=== PATIENT | male | born 1945 | race African-American/Black ===

== ENCOUNTER 2017-04-28 09:16 | Emergency (ER) | payer OTHER ==
[~2017-04-28] VITALS: Ht 185.4 cm; Wt 92.5 kg
--- NOTE | ~2017-04-28 | EKG ---
[place] [address] [facility] [place] [address] ELECTROCARDIOGRAM REPORT Name: EMILIE MATHIS Room #: DEP ROSY Pete#: [id number] Admission: 04/28/17 Attend Phys: Discharge: 04/28/17 Date of : 49 Report #: [id number] THIS REPORT FOR: //name// [facility] ED Test Date: 2017-04-28 Test Time: 09:50:01 Pat Name: EMILIE MATHIS Department: Room: Gender: M [employer] Supervisor: HTHOMPSON : 1945 Requested By: Rishabh Courtney Order Number: [id number] MD: Sp Horvath Measurements Intervals [place] Rate: 63 P: 12 PA: 195 QRS: 14 QRSD: 104 T: 11 QT: 413 QTc: 423 Interpretive Statements Sinus rhythm Probable left ventricular hypertrophy No previous ECG available for comparison Electronically Signed On 04-30-2017 13:34:41 CDT by Sp Horvath [email or web address] <ELECTRONICALLY SIGNED> By: Sp Horvath MD, [facility] 04/30/17 1334 0950 0950 Sp Horvath MD, FAC /EPI
[2017-04-28 09:58] LABS: ABSOLUTE NEUTROPHILS 1.8 thou/uL (1.4-8.2); BASOPHILS 0.8 % (0.0-2.0); HEMATOCRIT 41.6 % (42.0-52.0); HEMOGLOBIN 14.5 gm/dL (14.0-18.0); LYMPHOCYTES 41.2 % (24.0-44.0); MCHC 34.8 g/dL (28.0-37.0); MCV 89.1 fL (80.0-100.0); PLATELET COUNT 206 thou/uL (150-400); RBC 4.67 mil/uL (4.50-6.00); RDW 14.7 % (10.5-14.5); WBC 4.1 thou/uL (4.0-11.0)
[2017-04-28 10:00] LABS: MANUAL DIFF NO
[2017-04-28 10:06] LABS: ANION GAP 6 mmol/L (7-16); BUN 14 mg/dL (7-18); CALCIUM 9.4 mg/dL (8.5-10.1); CHLORIDE 102 mmol/L (98-107); CO2 30 mmol/L (21-32); CREATININE 1.2 mg/dL (0.7-1.3); GLUCOSE 136 mg/dL (74-106); POTASSIUM 4.2 mmol/L (3.5-5.1); SODIUM 138 mmol/L (136-145)
[2017-04-28 10:12] LABS: APTT 26.7 Seconds (24.5-32.8); PROTIME 10.2 Seconds (9.3-11.4)
[2017-04-28 10:14] LABS: ALBUMIN 4.2 g/dL (3.4-5.0); ALKALINE PHOSPHATASE 76 U/L (46-116); SGOT 27 U/L (15-37); SGPT 47 U/L (30-65); TOTAL BILIRUBIN 0.9 mg/dL (<0.1-1.0); TOTAL PROTEIN 8.2 g/dL (6.4-8.2); TROPONIN-I < 0.04 ng/mL (<0.04-0.07)
[2017-04-28] MEDS ORDERED: IBUPROFEN 600600 M1 PO (11:07)
[2017-04-28 11:10] VITALS: BP 118/74
== END 2017-04-28 11:11 | disposition home or self-care (01) ==
LOC: ER 09:16
PROVIDERS: Physician Assistant
DX: M79.601 Pain in right arm (principal); I10 Essential (primary) hypertension; Z86.73 Personal history of transient ischemic attack (TIA), and cerebral infarction without residual deficits